=== PATIENT | female | born 1970 ===

== ENCOUNTER 2021-02-16 06:00 | Day surgery (SDC) | payer OTHER ==
[2021-02-16] MEDS ORDERED: CARAFATE1 GM/10 ML PO (09:48)
[2021-02-16] MEDS ORDERED: QUESTRAN PACKET4 GM PO (09:48)
== END 2021-02-16 10:10 | disposition home or self-care (01) ==
LOC: CIR.AMB 06:00
PROVIDERS: ATTEND Surgery
DX: K29.60 Other gastritis without bleeding (principal); K44.9 Diaphragmatic hernia without obstruction or gangrene; Z20.822 Contact with and (suspected) exposure to COVID-19